=== PATIENT | male | born 1945 | race Caucasian/White ===

== ENCOUNTER 2017-01-09 11:47 | Day surgery (SDC) | payer OTHER ==
[2017-01-07 16:06] VITALS: BMI 27.2
[~2017-01-09 11:47] MED LIST: ALPRAZolam 0.25 MG TAB PO PRN; ALPRAZolam 0.5 MG TAB PO PRN; ASPIRIN 325 MG TAB PO STA; ATORVASTATIN 80 MG TAB PO STA; NITROGLYCERIN SL TABS 0.4 MG TAB SUBLINGUAL PRN; SODIUM CHLORIDE 0.9% 1,000 ML in EMPTY BAG 1 BAG IV ONE
[2017-01-09] MEDS ORDERED: ASPIRIN 81 MG ONE (12:04)
[2017-01-09 12:13] VITALS: TEMP 98.1
[2017-01-09 12:35] LABS: Glucose,Whole Blood 110 mg/dL (75-99)
[2017-01-09] MEDS ORDERED: fentaNYL (PF) 50 MCG/ML 2 ML AMP IVP ONE (13:25)
[2017-01-09] MEDS ORDERED: LIDOCAINE 2% INJ 20 MG/ML SQ ONE (13:29)
[2017-01-09] MEDS ORDERED: VERAPAMIL SYRINGE (5 MG/10 ML) INTRAARTER ONE (13:30)
[2017-01-09] MEDS ORDERED: HEPARIN SODIUM 1,000 UN/ML (10ML VL) IV ONE (13:35)
[2017-01-09] MEDS ORDERED: IOHEXOL 350 MG/ML 125ML BOTTLE INJ ONE (13:44)
[2017-01-09] MEDS ORDERED: RX INFO: IV CONTRAST WAS GIVEN 1 EACH MISC MISCELLANE PRN (14:01)
[2017-01-09] MEDS ORDERED: SODIUM CHLORIDE 0.9% 1,000 ML IV SCH (14:15)
[2017-01-09 16:11] VITALS: BP 146/67; PULSE 71; RESP 16
--- NOTE | 2017-01-09 22:36 | CC ---
CARDIAC CATHETERIZATION REPORT Mr. Galarza is a 71-year-old male with known history of hypertension, hyperlipidemia, diabetes mellitus, who presented with symptoms of progressive dyspnea on exertion that has limited his physical activity. He also describes symptoms of chest discomfort, tightness-like, with physical activity. In view of that and in view of his multiple risk factors, recommendation was made regarding cardiac catheterization. The procedure, its risks and complication were discussed with the patient, who was in full understanding and agreement. PROCEDURE: Patient was brought to the cath lab nurse in a fasting, semi-sedated state after receiving fentanyl and Benadryl and achieving moderate conscious sedated state. Using Xylocaine anesthesia and Seldinger technique, a 6-Mont[place]grin sheath was introduced in the right radial artery. Selective right and left coronary angiography was performed using a 5- [place] 3-1/2 bend right and left Je catheters. Multiple views were taken of the arteries, including hemiaxial views. Following that, a 5-Montenegrin tight pigtail catheter was introduced into the left ventricle and a 30-degree MENG view of the left ventricle was obtained. Following that, catheter and sheath were removed. Hemostasis was obtained with deployment of a TR band. There was no immediate complication. Patient was returned to his room in stable condition. FINDINGS: FLUOROSCOPY: There was calcification involving the right coronary artery, the left anterior descending artery and the left circumflex. LEFT MAIN: This is a short-size vessel bifurcating into left circumflex, left anterior descending artery. Left main coronary artery is without any significant obstructive disease. LEFT ANTERIOR DESCENDING ARTERY: This is a large-sized vessel reaching toward the apex with a wrap around the apex segment giving rise to a large diagonal branch in the proximal segment. The left anterior descending artery proximally had a 20% to 30% plaque. The rest of the vessel has no high-grade stenosis. LEFT CIRCUMFLEX: This is a nondominant vessel, large in caliber, giving rise to 2 obtuse marginal branches. The first one is very proximal and small in caliber. The second one is larger. The left circumflex proximally has a 20% to 30% plaque. The rest of the vessel has no high-grade stenosis. RIGHT CORONARY ARTERY: This is a large dominant vessel bifurcating distally into PDA, posterolateral segment and branches. The right coronary artery is tortuous in the proximal and mid segment. It has a 20% to 30% plaque in the proximal and mid segment without any evidence of high-grade stenosis. LEFT VENTRICULOGRAM: Left ventriculogram was performed in 30-degree MENG view and revealed normal left ventricular size and systolic function. There was no evidence of significant mitral regurgitation. Calcification of the abdominal aorta was noted. HEMODYNAMICS: There was no gradient across the aortic valve. The left ventricular end- diastolic pressure was 20 mmHg. CONCLUSION: 1. Calcified coronary arteries. 2. Mild triple-vessel coronary artery disease. 3. Normal left ventricular size and systolic function with calcified abdominal aorta. RECOMMENDATION: In view of the findings and anatomy, I have recommended continue medical therapy with the aggressive coronary risk modifications that have been initiated. Those findings and recommendation were discussed with the patient and his family, and they are in full understanding and agreement. Duration of the procedure was 19 minutes. SAUL / IVANA: [id number] /
[2017-01-10] MEDS ORDERED: ASPIRIN 81 MG PO SCH (09:00)
[2017-01-10] MEDS ORDERED: LOSARTAN 50 MG TAB PO SCH (09:00)
== END 2017-01-09 18:58 | disposition home or self-care (01) ==
LOC: CATHCVL 11:47 → 6ICU 14:18 → UNDOADMIN 14:18 → CATHCVL 18:58
PROVIDERS: ATTEND Internal Medicine Interventional Cardiology
DX: I25.110 Atherosclerotic heart disease of native coronary artery with unstable angina pectoris (principal); I25.84 Coronary atherosclerosis due to calcified coronary lesion; I10 Essential (primary) hypertension; E78.2 Mixed hyperlipidemia; E11.21 Type 2 diabetes mellitus with diabetic nephropathy; Z79.84 Long term (current) use of oral hypoglycemic drugs; Z79.1 Long term (current) use of non-steroidal anti-inflammatories (NSAID); Z79.899 Other long term (current) drug therapy; Z88.5 Allergy status to narcotic agent
CPT/HCPCS: 93458; C1894; C1769; J2001; J3010; J1644; Q9967

== ENCOUNTER 2017-03-12 07:29 | Day surgery (SDC) | payer OTHER ==
[2017-03-11 08:53] VITALS: BMI 26.5
[~2017-03-12 07:29] MED LIST changes: -ALPRAZolam 0.25 MG TAB PO PRN; -ALPRAZolam 0.5 MG TAB PO PRN; -ASPIRIN 325 MG TAB PO STA; -ATORVASTATIN 80 MG TAB PO STA; +LACTATED RINGERS 1,000 ML IV SCH; -NITROGLYCERIN SL TABS 0.4 MG TAB SUBLINGUAL PRN; -SODIUM CHLORIDE 0.9% 1,000 ML in EMPTY BAG 1 BAG IV ONE
[2017-03-12 07:49] VITALS: TEMP 97.7
[2017-03-12 07:53] LABS: Glucose,Whole Blood 112 mg/dL (75-99)
[2017-03-12] MEDS ORDERED: LIDOCAINE 1% INJ 10MG/ML (20 ML MDV) ONE (08:46)
[2017-03-12] MEDS ORDERED: PROPOFOL 10 MG/ML 20 ML VIAL IV ONE (08:46)
--- NOTE | 2017-03-12 09:09 | P.PCN ---
Date of Procedure: 03/12/17 Procedure(s) Performed: Procedure: Total colonoscopy. Preoperative diagnosis: Screening for neoplasia, patient has history of polyps. Postoperative diagnosis: Sigmoid diverticulosis with no evidence of acute diverticulitis, strictures, polyps or cancer. Preparation: HalfLytely prep. Sedation: Was provided by anesthesia. Brief clinical history: The patient is a 71-year-old male who is referred for this evaluation for screening for neoplasia because of history of polyps. His last exam was 5 years ago. The patient has no abdominal complaints, bleeding or anemia. Procedure: With the patient on his left lateral decubitus position and after informed consent and adequate sedation, the perianal area was inspected and it did not show any fissures or fistulas. There were no masses felt on digital rectal examination. The Olympus CFQ 160L video colonoscope was then inserted in the rectum in the usual fashion and advanced to the cecum. There were multiple diverticular orifices seen scattered in the sigmoid with no evidence of acute diverticulitis or strictures. No polyps or tumors were seen. I retroflexed the endoscope in the rectum before the endoscope was withdrawn. The patient tolerated the procedure well. Plan: The patient was reassured. Discussed dietary measures. I recommended repeat exam in 5 years. He will follow up with you as planned.
[2017-03-12 09:25] VITALS: RESP 18
[2017-03-12 09:39] VITALS: BP 149/86; PULSE 60
== END 2017-03-12 09:51 | disposition home or self-care (01) ==
LOC: ORWHC2ENDO 07:29
DX: Z12.11 Encounter for screening for malignant neoplasm of colon (principal); K57.30 Diverticulosis of large intestine without perforation or abscess without bleeding; Z86.010 Personal history of colon polyps; E11.9 Type 2 diabetes mellitus without complications; Z79.84 Long term (current) use of oral hypoglycemic drugs; I10 Essential (primary) hypertension; E78.5 Hyperlipidemia, unspecified; M19.90 Unspecified osteoarthritis, unspecified site; Z79.899 Other long term (current) drug therapy; Z88.5 Allergy status to narcotic agent
CPT/HCPCS: J2001; J2704; G0105; 45378

== ENCOUNTER → 2017-09-06 | Outpatient (CLI) | payer OTHER, MEDICARE ==
[2017-09-06 12:44] LABS: Blood Urea Nitrogen 14 mg/dL (9-20)
--- NOTE | 2017-09-06 13:29 | CT ---
EXAMINATION TYPE: CT chest w con DATE OF EXAM: 09/06/2017 COMPARISON: CT abdomen pelvis 08/02/2017 HISTORY: Solitary pulmonary nodule CT DLP: 364.20 mGycm Automated exposure control for dose reduction was used. CONTRAST: CT scan of the chest is performed with IV Contrast, patient injected with 100 ml mL of Isovue 300. FINDINGS: LUNGS: The lungs are stable, there is no change in the right middle lobe noncalcified, smoothly vasile nated nodule identified on previous exam measuring approximately 7 mm. An additional focus at this l evel is present more posteriorly associated with the fissure, both nodules appear wider than tall. Th ere is no pleural effusion or pneumothorax seen. The tracheobronchial tree is patent. MEDIASTINUM: There are no greater than 1 cm hilar or mediastinal lymph nodes. No pericardial effusi on is seen. AORTA: No additional significant abnormality is seen. Coronary artery calcifications are present. Pr ominence of the left pulmonary artery greater than right, correlate for possible pulmonary artery hyp ertension, left and right pulmonary arteries are increased in size as compared to the pulmonary arter y trunk. OTHER: Dependent high density in the gallbladder compatible with stones. There is a low dense focus towards the head of the pancreas which is incompletely evaluated but could be related to patient's du odenal diverticulum. IMPRESSION: Right lung nodules appears somewhat more nodular in the axial plane and coronal plane, t his may present inflammatory change, consider follow-up in 6-12 months to assess for stability. Addit ional findings above.
== END | disposition home or self-care (01) ==
LOC: RADCTMAIN 12:05
DX: I25.10 Atherosclerotic heart disease of native coronary artery without angina pectoris (principal); R91.8 Other nonspecific abnormal finding of lung field
CPT/HCPCS: 82565; 84520; 71260; 36415; Q9967

== ENCOUNTER → 2017-10-31 | Outpatient (CLI) | payer MEDICARE ==
--- NOTE | 2017-10-31 11:49 | XR ---
EXAMINATION TYPE: XR KUB DATE OF EXAM: 10/31/2017 11:32 AM CLINICAL HISTORY: Kidney calculi TECHNIQUE: Two Upright KUB images of the abdomen are obtained. COMPARISON: CT abdomen and pelvis August 02, 2017. FINDINGS: Scattered gas is seen in non-distended small bowel loops. Gas and fecal material is seen in non-distended colon. Tiny calculi on CT are less well seen on plain films all measuring 2 mm or smal ler in size. Underlying S-shaped scoliosis with multilevel spurring and spine is redemonstrated. Lung bases are clear. IMPRESSION: Tiny bilateral renal calculi on CT are too small to visualize on plain films.
== END | disposition home or self-care (01) ==
LOC: RADXRMAIN 11:06
PROVIDERS: ATTEND Urology
DX: N20.1 Calculus of ureter (principal)
CPT/HCPCS: 74018

== ENCOUNTER 2018-05-18 12:40 | Observation (INO) | payer MEDICARE ==
[2018-05-18] MEDS ORDERED: NITROGLYCERIN OINT 1 INCH/GM PACKET TOPICAL STA (13:24)
[2018-05-18] MEDS ORDERED: ASPIRIN 81 MG PO STA (13:24)
--- NOTE | 2018-05-18 13:29 | ED ---
General Adult HPI - General Chief complaint: Chest Pain Stated complaint: Chest discomfort Time Seen by Provider: 05/18/18 12:59 Source: patient, RN notes reviewed Mode of arrival: ambulatory Limitations: no limitations - History of Present Illness Initial comments: Patient is a pleasant 72 old male presenting to the emergency Department with complaints of chest discomfort. Onset of symptoms was yesterday. Patient states he just didn't feel right. Patient questioned if it was his blood sugar blood pressure. Blood pressure was 165/90. Patient has had some tightness or cramping in his chest, more so on the left side. There has been some associated dyspnea. There is also been some nausea and sweating. Currently patient is symptom-free. No history of similar symptoms previously. Patient states he also check his blood sugar at 135. - Related Data Home Medications Medication Instructions Recorded Confirmed Losartan [Cozaar] 50 mg PO DAILY 10/31/14 05/18/18 Naproxen 500 mg PO BID 10/31/14 05/18/18 metFORMIN HCL [Glucophage] 1,000 mg PO QAM 10/31/14 05/18/18 Atorvastatin [Lipitor] 40 mg PO DAILY 03/11/17 05/18/18 metFORMIN HCL 500 mg PO HS 05/18/18 05/18/18 Allergies Allergy/AdvReac Type Severity Reaction Status Date / Time codeine AdvReac Nausea & Verified 05/18/18 13:42 Vomiting Review of Systems ROS Statement: Those systems with pertinent positive or pertinent negative responses have been documented in the HPI. ROS Other: All systems not noted in ROS Statement are negative. Constitutional: Denies: fever, chills Eyes: Denies: eye pain ENT: Denies: ear pain Respiratory: Reports: as per HPI. Denies: cough Cardiovascular: Reports: chest pain Endocrine: Reports: fatigue Gastrointestinal: Reports: nausea Genitourinary: Denies: dysuria Musculoskeletal: Denies: back pain Skin: Denies: rash Neurological: Denies: weakness Past Medical History Past Medical History: Diabetes Mellitus, Hyperlipidemia, Hypertension, Osteoarthritis (OA) Additional Past Medical History / Comment(s): hx ulcer, hx kidney stones History of Any Multi-Drug Resistant Organisms: None Reported Past Surgical History: Heart Catheterization, Orthopedic Surgery, Tonsillectomy Additional Past Surgical History / Comment(s): left shoulder rotator cuff; lithotripsy; colonoscopy Past Anesthesia/Blood Transfusion Reactions: Motion Sickness Past Psychological History: No Psychological Hx Reported Smoking Status: Never smoker Past Alcohol Use History: None Reported Past Drug Use History: None Reported - Past Family History Father Family Medical History: Cancer General Exam Limitations: no limitations General appearance: alert, in no apparent distress Head exam: Present: atraumatic Eye exam: Present: normal appearance, PERRL ENT exam: Present: normal oropharynx Neck exam: Present: normal inspection Respiratory exam: Present: normal lung sounds bilaterally. Absent: chest wall tenderness Cardiovascular Exam: Present: regular rate, normal rhythm Expanded Peripheral pulses: 2+: Radial (R), Radial (L), Dorsalis Pedis (R), Dorsalis Pedis (L) GI/Abdominal exam: Present: soft. Absent: distended, tenderness Extremities exam: Present: normal inspection. Absent: pedal edema, calf tenderness Neurological exam: Present: alert Psychiatric exam: Present: normal affect, normal mood Skin exam: Present: normal color Course Vital Signs 05/18/18 12:48 Temperature 98.2 F Pulse Rate 97 Respiratory 18 Rate Blood Pressure 155/93 O2 Sat by Pulse 98 Oximetry EKG Findings - EKG Comments: EKG Findings:: Normal sinus rhythm 73. PA 170. QRS 110. QT 386. QTc 425. Normal axis. Normal QRS. No acute ST change. Medical Decision Making - Medical Decision Making Patient reevaluated and resting comfortably in bed. Patient and family updated on results and plan. Case was discussed in detail with Dr. Dickinson, covering for be a patient, who will admit. - Lab Data Result diagrams: 05/18/18 14:00 05/18/18 14:00 Lab Results 05/18/18 05/18/18 05/18/18 Range/Units 14:00 14:00 14:00 WBC 9.8 (3.8-10.6) k/uL RBC 5.30 (4.30-5.90) m/uL Hgb 15.8 (13.0-17.5) gm/dL Hct 47.8 (39.0-53.0) % MCV 90.4 (80.0-100.0) fL MCH 29.9 (25.0-35.0) pg MCHC 33.1 (31.0-37.0) g/dL RDW 13.8 (11.5-15.5) % Plt Count 197 (150-450) k/uL Neutrophils % 61 % Lymphocytes % 28 % Monocytes % 7 % Eosinophils % 2 % Basophils % 1 % Neutrophils # 6.0 (1.3-7.7) k/uL Lymphocytes # 2.8 (1.0-4.8) k/uL Monocytes # 0.6 (0-1.0) k/uL Eosinophils # 0.2 (0-0.7) k/uL Basophils # 0.0 (0-0.2) k/uL PT (9.0-12.0) sec INR (<1.2) APTT (22.0-30.0) sec D-Dimer (<0.60) mg/L FEU Sodium 142 (137-145) mmol/L Potassium 4.2 (3.5-5.1) mmol/L Chloride 106 (98-107) mmol/L Carbon Dioxide 23 (22-30) mmol/L Anion Gap 13 mmol/L BUN 13 (9-20) mg/dL Creatinine 0.87 (0.66-1.25) mg/dL Est GFR (CKD-EPI)AfAm >90 (>60 ml/min/1.73 sqM) Est GFR (CKD-EPI)NonAf 88 (>60 ml/min/1.73 sqM) Glucose 142 H (74-99) mg/dL Calcium 10.3 H (8.4-10.2) mg/dL Magnesium 2.0 (1.6-2.3) mg/dL Total Bilirubin 1.2 (0.2-1.3) mg/dL AST 33 (17-59) U/L ALT 38 (21-72) U/L Alkaline Phosphatase 70 (38-126) U/L Total Creatine Kinase 85 (55-170) U/L CK-MB (CK-2) 0.6 (0.0-2.4) ng/mL CK-MB (CK-2) Rel Index 0.7 Troponin I <0.012 (0.000-0.034) ng/mL Total Protein 8.0 (6.3-8.2) g/dL Albumin 4.8 (3.5-5.0) g/dL 05/18/18 Range/Units 14:00 WBC (3.8-10.6) k/uL RBC (4.30-5.90) m/uL Hgb (13.0-17.5) gm/dL Hct (39.0-53.0) % MCV (80.0-100.0) fL MCH (25.0-35.0) pg MCHC (31.0-37.0) g/dL RDW (11.5-15.5) % Plt Count (150-450) k/uL Neutrophils % % Lymphocytes % % Monocytes % % Eosinophils % % Basophils % % Neutrophils # (1.3-7.7) k/uL Lymphocytes # (1.0-4.8) k/uL Monocytes # (0-1.0) k/uL Eosinophils # (0-0.7) k/uL Basophils # (0-0.2) k/uL PT 11.4 (9.0-12.0) sec INR 1.1 (<1.2) APTT 25.0 (22.0-30.0) sec D-Dimer 0.21 (<0.60) mg/L FEU Sodium (137-145) mmol/L Potassium (3.5-5.1) mmol/L Chloride (98-107) mmol/L Carbon Dioxide (22-30) mmol/L Anion Gap mmol/L BUN (9-20) mg/dL Creatinine (0.66-1.25) mg/dL Est GFR (CKD-EPI)AfAm (>60 ml/min/1.73 sqM) Est GFR (CKD-EPI)NonAf (>60 ml/min/1.73 sqM) Glucose (74-99) mg/dL Calcium (8.4-10.2) mg/dL Magnesium (1.6-2.3) mg/dL Total Bilirubin (0.2-1.3) mg/dL AST (17-59) U/L ALT (21-72) U/L Alkaline Phosphatase (38-126) U/L Total Creatine Kinase (55-170) U/L CK-MB (CK-2) (0.0-2.4) ng/mL CK-MB (CK-2) Rel Index Troponin I (0.000-0.034) ng/mL Total Protein (6.3-8.2) g/dL Albumin (3.5-5.0) g/dL - Radiology Data Radiology results: image reviewed (Chest x-ray shows no acute process) Disposition Clinical Impression: Chest pain Disposition: ADMITTED IP TO THIS HOSP Is patient prescribed a controlled substance at d/c from ED?: No Referrals: [facility],Clinic [Primary Care Provider] - 1-2 days Decision Time: 15:28
[2018-05-18 14:18] LABS: Basophils % (A) 1 %; Eosinophils # (A) 0.2 k/uL (0-0.7); Eosinophils % (A) 2 %; HCT 47.8 % (39.0-53.0); HGB 15.8 gm/dL (13.0-17.5); Lymphocytes # (A) 2.8 k/uL (1.0-4.8); Lymphocytes % (A) 28 %; MCH 29.9 pg (25.0-35.0); MCHC 33.1 g/dL (31.0-37.0); MCV 90.4 fL (80.0-100.0); Monocytes # (A) 0.6 k/uL (0-1.0); Monocytes % (A) 7 %; Neutrophils % (A) 61 %; Platelet Count 197 k/uL (150-450); RDW 13.8 % (11.5-15.5); WBC 9.8 k/uL (3.8-10.6)
[2018-05-18 14:31] LABS: ALT 38 U/L (21-72); AST 33 U/L (17-59); Albumin 4.8 g/dL (3.5-5.0); Alkaline Phosphatase 70 U/L (38-126); Anion Gap 13 mmol/L; Blood Urea Nitrogen 13 mg/dL (9-20); Calcium 10.3 mg/dL (8.4-10.2); Carbon Dioxide 23 mmol/L (22-30); Chloride 106 mmol/L (98-107); Glucose 142 mg/dL (74-99); Potassium 4.2 mmol/L (3.5-5.1); Sodium 142 mmol/L (137-145); Total Bilirubin 1.2 mg/dL (0.2-1.3)
[2018-05-18 14:36] LABS: D-Dimer 0.21 mg/L FEU (<0.60); INR 1.1 (<1.2); Prothrombin Time 11.4 sec (9.0-12.0)
[2018-05-18 14:48] LABS: Creatine Kinase 85 U/L (55-170)
[2018-05-18 15:00] LABS: Creatine Kinase MB 0.6 ng/mL (0.0-2.4); Troponin I <0.012 ng/mL (0.000-0.034)
--- NOTE | 2018-05-18 15:22 | XR ---
EXAMINATION TYPE: XR chest 2V DATE OF EXAM: 05/18/2018 COMPARISON: CT chest 09/06/2017 HISTORY: Chest pain TECHNIQUE: Frontal and lateral views of the chest are obtained. FINDINGS: There is no focal air space opacity, pleural effusion, or pneumothorax seen. The cardiac silhouette size is within normal limits. Lung nodules described on prior report of CT are not seen o n plain film. The osseous structures are intact. IMPRESSION: No acute cardiopulmonary process.
[2018-05-18] MEDS ORDERED: NITROGLYCERIN SL TABS 0.4 MG TAB SUBLINGUAL PRN (15:29)
[2018-05-18 17:24] LABS: Glucose,Whole Blood 97 mg/dL (75-99)
[2018-05-18] MEDS: NITROGLYCERIN OINT 1 INCH/GM PACKET TOPICAL SCH (18:01)
[2018-05-18] MEDS: PANTOPRAZOLE 40 MG TABLET PO SCH (18:04)
[2018-05-18 20:14] LABS: Glucose,Whole Blood 145 mg/dL (75-99)
[2018-05-18] MEDS ORDERED: metFORMIN 500 MG TAB PO SCH (21:00)
[2018-05-18 21:20] LABS: Creatine Kinase 83 U/L (55-170)
[2018-05-18 21:33] LABS: Creatine Kinase MB 0.5 ng/mL (0.0-2.4); Troponin I <0.012 ng/mL (0.000-0.034)
[2018-05-18] MEDS: HEPARIN SODIUM,PORCINE 5,000 UNIT/ML 1 ML VIAL SQ SCH (23:59)
[2018-05-19] MEDS: NITROGLYCERIN OINT 1 INCH/GM PACKET TOPICAL SCH ×2 (00:09→05:39)
[2018-05-19] MEDS ORDERED: MELATONIN 5 MG TABLET PO SCH (00:15)
--- NOTE | 2018-05-19 01:50 | P.HPIM ---
History of Present Illness H&P Date: 05/18/18 Chief Complaint: Chest discomfort Patient is a 72-year-old male with a known history of hypertension, hyperlipidemia, diabetes type 2 and osteoarthritis and previous history of cardiac catheterization about one and half year ago without any PCI came to ER with complaints of chest discomfort. Patient says that he was found to have elevated blood pressure since last Saturday and went up to 160/80 at home. Patient felt some tightness in his chest cramping type more on the left upper rib cage and also left arm pain. Patient did have some shortness of breath and dry cough. Denied any fever or chills. No nausea vomiting or diaphoresis. Denied any recent upper respiratory infections. Patient came to Hospital for evaluation. Otherwise patient is currently chest pain-free. Chest x-ray showed no acute cardio pulmonary process EKG showed normal sinus rhythm Troponin 2 negative D-dimer 0.2 one not elevated Calcium 10.3 All other laboratory data within normal limits. Patient denied any history of smoking in the past. No alcohol use. Review of Systems Constitutional: Patient denies any fever or chills . No generalized weakness or weight loss. Abdomen: Patient denied nausea vomiting and diarrhea and abdominal pain. Cardiovascular: Patient denies any chest pain or short of breath no palpitations. Respiratory: patient denied any cough is from production. No shortness of breath Neurologic: Patient denied any numbness or tingling headache. Musculoskeletal: Patient denies any complaints of joint swelling or deformity. Skin: Negative Psychiatric: Negative Endocrine: No heat or cold intolerance. No recent weight gain. Genitourinary: No dysuria or hematuria. All other 14 point ROS negative except the above Past Medical History Past Medical History: Diabetes Mellitus, Hyperlipidemia, Hypertension, Osteoarthritis (OA) Additional Past Medical History / Comment(s): hx ulcer, hx kidney stones History of Any Multi-Drug Resistant Organisms: None Reported Past Surgical History: Heart Catheterization, Orthopedic Surgery, Tonsillectomy Additional Past Surgical History / Comment(s): left shoulder rotator cuff; lithotripsy; colonoscopy Past Anesthesia/Blood Transfusion Reactions: Motion Sickness Past Psychological History: No Psychological Hx Reported Smoking Status: Never smoker Past Alcohol Use History: None Reported Past Drug Use History: None Reported - Past Family History Father Family Medical History: Cancer Medications and Allergies Home Medications Medication Instructions Recorded Confirmed Type Losartan [Cozaar] 50 mg PO DAILY 10/31/14 05/18/18 History Naproxen 500 mg PO BID 10/31/14 05/18/18 History metFORMIN HCL [Glucophage] 1,000 mg PO QAM 10/31/14 05/18/18 History Atorvastatin [Lipitor] 40 mg PO DAILY 03/11/17 05/18/18 History metFORMIN HCL 500 mg PO HS 05/18/18 05/18/18 History Allergies Allergy/AdvReac Type Severity Reaction Status Date / Time codeine AdvReac Nausea & Verified 05/18/18 13:42 Vomiting Physical Exam Vitals: Vital Signs Temp Pulse Resp BP Pulse Ox 05/18/18 16:30 78 18 145/93 97 05/18/18 16:00 69 18 142/93 98 05/18/18 15:30 75 155/94 99 05/18/18 15:00 73 140/92 98 05/18/18 14:30 74 163/97 98 05/18/18 14:00 80 146/119 99 05/18/18 12:48 98.2 F 97 18 155/93 98 Intake and Output 05/18/18 05/18/18 05/18/18 06:59 14:59 22:59 Other: Weight 86.183 kg PHYSICAL EXAMINATION: Patient is lying in the bed comfortably, no acute distress, awake alert and oriented.. HEENT: Normocephalic. Neck is supple. Pupils reactive. Nostrils clear. Oral cavity is moist. Ears reveal no drainage. Neck reveals no JVD, carotid bruits, or thyromegaly. CHEST EXAMINATION: Trachea is central. Symmetrical expansion. Lung briceno clear to auscultation and percussion. CARDIAC: Normal S1, S2 with no gallops. No murmurs ABDOMEN: Soft. Bowel sounds normal. No organomegaly. No abdominal bruits. Extremities: reveal no edema. No clubbing or cyanosis Neurologically awake, alert, oriented x3 with well-coordinated movements. No focal deficits noted Skin: No rash or skin lesions. Psychiatric: Coperative. Nonsuicidal Musculoskeletal: No joint swelling or deformity. Normal range of motion. Results CBC & Chem 7: 05/18/18 14:00 05/18/18 14:00 Labs: Abnormal Lab Results - Last 24 Hours (Table) 05/18/18 Range/Units 14:00 Glucose 142 H (74-99) mg/dL Calcium 10.3 H (8.4-10.2) mg/dL Thrombosis Risk Factor Assmnt - DVT/VTE Prophylaxis DVT/VTE Prophylaxis: Pharmacologic Prophylaxis ordered Assessment and Plan Assessment: Atypical chest pain. Rule out ACS Uncontrolled hypertension Diabetes type 2 [id number] Osteoarthritis Hyperlipidemia History of a cardiac catheterization about one and half year ago History of renal stones status post lithotripsy History of ulcer Left shoulder rotator cuff repair DVT prophylaxis Plan: Patient be continued on telemetry monitoring. Serial EKG and troponin. Continue with home blood pressure medications and other home medications and add insulin sliding scale. Continue the pain management and further recommendations based on the clinical course. Cardiology was consulted. Time with Patient: Greater than 30
[2018-05-19 02:22] LABS: Cholesterol 105 mg/dL (<200); HDL Cholesterol 34 mg/dL (40-60); LDL Cholesterol,Calculated 26 mg/dL (0-99); Triglycerides 223 mg/dL (<150)
[2018-05-19 02:40] LABS: Creatine Kinase 89 U/L (55-170)
[2018-05-19 02:54] LABS: Creatine Kinase MB 0.5 ng/mL (0.0-2.4); Troponin I <0.012 ng/mL (0.000-0.034)
[2018-05-19 07:17] LABS: Calcium 9.7 mg/dL (8.4-10.2); Potassium 4.6 mmol/L (3.5-5.1)
[2018-05-19 07:32] LABS: Glucose,Whole Blood 115 mg/dL (75-99)
[2018-05-19] MEDS: HEPARIN SODIUM,PORCINE 5,000 UNIT/ML 1 ML VIAL SQ SCH (08:49)
[2018-05-19] MEDS: PANTOPRAZOLE 40 MG TABLET PO SCH (08:50)
[2018-05-19] MEDS ORDERED: ASPIRIN 81 MG PO SCH (09:00)
[2018-05-19] MEDS ORDERED: ASPIRIN 325 MG TAB PO SCH (09:00)
[2018-05-19] MEDS ORDERED: metFORMIN 500 MG TAB PO SCH (09:00)
[2018-05-19] MEDS ORDERED: LOSARTAN 50 MG TAB PO SCH ×2 (09:00)
[2018-05-19] MEDS ORDERED: ATORVASTATIN 40 MG TAB PO SCH (09:00)
[2018-05-19 11:41] LABS: Glucose,Whole Blood 132 mg/dL (75-99)
--- NOTE | 2018-05-19 11:56 | P.CRDCN ---
History of Present Illness History of present illness: This is a pleasant 72-year-old male past medical history significant for mild nonobstructive triple-vessel coronary artery disease, hypertension, dyslipidemia and diabetes mellitus. He follows in the office with Dr. Martinez. We have been asked to see him in consultation for symptoms of chest pain. He states since Saturday night he has been feeling fatigued, weak and has been intermittently lightheaded. He has been checking her sugar quite regularly over the weekend and is noted to be high on multiple occasions. He also checked his blood pressure and it was high as well with readings of 160/99 and 175 over 1. Takes losartan 50 mg daily and states he is very compliant with taking it every morning. He also describes a spasm type cramp sensation to the left thoracic region with radiation into the axillary region. He denies any pain in the anterior precordial chest region, arm, back, neck or jaw. He denies any shortness of breath, palpitations, nausea, vomiting or diaphoresis. His feeling fatigued and dizzy. checked his sugar and it was high. also checked his blood pressure and it was high, 160/99 175/101. takes losartan every morning. took his dose yesterday am as usual. Also feeling a spasm squeezing pain in the left thoracic region radiating into the axillary region. No pain in the arm, back, neck or jaw. Denies shortness of breath, palpitations. The discomfort in his thoracic region is associated with movement of his upper body last less than a minute at a time and comes and goes with no specific aggravating or alleviating factors. EKG on arrival reveals sinus mechanism with no acute ST or T wave abnormalities noted. Chest x-ray is negative for an acute cardiopulmonary process. Laboratory data reviewed, WBC 9.8, hemoglobin 15.8, platelets 197, d-dimer 0.21 , sodium 140, potassium 4.6, creatinine 0.99, magnesium 2.0, cardiac enzymes negative 3, LDL 26 HDL 34, triglycerides 223 and total cholesterol 105. Current cardiac medications include losartan 50 mg daily, atorvastatin 40 mg daily. He states he does not take an aspirin for personal preference. He underwent cardiac catheterization December 2017 which revealed mild nonobstructive coronary artery disease with 20-30% plaque noted in the LAD, circumflex and RCA. At the time of my exam: CONSTITUTIONAL: Denies fever. Denies chills. EYES: Denies blurred vision. Denies vision changes. Denies eye pain. EARS, NOSE, MOUTH & THROAT: Denies headache. Denies sore throat. Denies ear pain. CARDIOVASCULAR: Denies chest pain. Denies shortness of breath. Denies orthopnea. Denies PND. Denies palpitations. RESPIRATORY: Denies cough. GASTROINTESTINAL: Denies abdominal pain. Denies diarrhea. Denies constipation. Denies nausea. Denies vomiting. MUSCULOSKELETAL: Denies myalgias. INTEGUMENTARY: Denies pruitis. Denies rash. NEUROLOGIC: Denies numbness. Denies tingling. Denies weakness. PSYCHIATRIC: Denies anxiety. Denies depression. ENDOCRINE: Denies fatigue. Denies weight change. Denies polydipsia. Denies polyurina. GENITOURINARY: Denies burning, hematuria or urgency with micturation. HEMATOLOGIC: Denies history of anemia. Denies bleeding. Blood pressure 135/89 heart rate 81 afebrile maintaining oxygen saturation on room air GENERAL: This is a 72 -year-old male in no apparent distress at the time of my examination. HEENT: Head is atraumatic, normocephalic. Pupils are equal, round. Sclerae anicteric. Conjunctivae are clear. Mucous membranes of the mouth are moist. Neck is supple. There is no jugular venous distention. No carotid bruit is heard. LUNGS: Clear to auscultation no wheezes, rales or rhonchi. No chest wall tenderness is noted on palpation or with deep breathing. HEART: Regular rate and rhythm without murmurs, rubs or gallops. S1 and S2 heard. ABDOMEN: Soft, nontender. Bowel sounds are heard. No organomegaly noted. EXTREMITIES: No evidence of peripheral edema and no calf tenderness noted. VASCULAR: Radial and dorsalis pedis pulses palpated, no evidence of clubbing. NEUROLOGIC: Patient is awake, alert and oriented x3. ASSESSMENT Chest pain, musculoskeletal. An acute coronary event has been ruled out. Hypertension, uncontrolled Dyslipidemia Diabetes mellitus Mild nonobstructive multivessel coronary artery disease PLAN An acute coronary event has been ruled out with no EKG evidence of ischemia and negative cardiac enzymes. Obtain 2-D echocardiogram and Doppler study to assess cardiac structure and function. Recommend aspirin 81 mg daily. Increase losartan to 50 mg twice a day. Triglycerides will improve when diabetes was under better control. Follow-up in the office with Dr. Martinez upon discharge. Thank you kindly for this consultation. Nurse Practitioner note has been reviewed, I agree with a documented findings and plan of care. Patient was seen and examined. Past Medical History Past Medical History: Diabetes Mellitus, Hyperlipidemia, Hypertension, Osteoarthritis (OA) Additional Past Medical History / Comment(s): hx ulcer, hx kidney stones History of Any Multi-Drug Resistant Organisms: None Reported Past Surgical History: Heart Catheterization, Orthopedic Surgery, Tonsillectomy Additional Past Surgical History / Comment(s): left shoulder rotator cuff; lithotripsy; colonoscopy Past Anesthesia/Blood Transfusion Reactions: Motion Sickness Past Psychological History: No Psychological Hx Reported Smoking Status: Never smoker Past Alcohol Use History: None Reported Past Drug Use History: None Reported - Past Family History Father Family Medical History: Cancer Medications and Allergies Home Medications Medication Instructions Recorded Confirmed Type Losartan [Cozaar] 50 mg PO DAILY 10/31/14 05/18/18 History Naproxen 500 mg PO BID 10/31/14 05/18/18 History metFORMIN HCL [Glucophage] 1,000 mg PO QAM 10/31/14 05/18/18 History Atorvastatin [Lipitor] 40 mg PO DAILY 03/11/17 05/18/18 History metFORMIN HCL 500 mg PO HS 05/18/18 05/18/18 History Allergies Allergy/AdvReac Type Severity Reaction Status Date / Time codeine AdvReac Nausea & Verified 05/18/18 13:42 Vomiting Physical Exam Vitals: Vital Signs Temp Pulse Pulse Resp BP BP Pulse Ox 05/19/18 04:00 98.3 F 92 18 146/88 98 05/19/18 00:00 98.1 F 90 18 145/88 99 05/18/18 23:52 18 05/18/18 20:00 18 05/18/18 19:52 98.3 F 73 18 115/72 98 05/18/18 17:40 97.8 F 89 16 156/98 98 05/18/18 17:37 89 18 05/18/18 16:30 78 18 145/93 97 05/18/18 16:00 69 18 142/93 98 05/18/18 15:30 75 155/94 99 05/18/18 15:00 73 140/92 98 01/27/19 14:30 74 163/97 98 01/27/19 14:00 80 146/119 99 05/18/18 12:48 98.2 F 97 18 155/93 98 Intake and Output 05/18/18 05/19/18 05/19/18 22:59 06:59 14:59 Intake Total 240 Balance 240 Intake: Oral 240 Other: Voiding Method Toilet Toilet # Voids 2 Weight 87 kg Results 05/18/18 14:00 05/19/18 05:55 Cardiac Enzymes 05/18/18 05/18/18 05/18/18 Range/Units 14:00 14:00 20:17 AST 33 (17-59) U/L CK-MB (CK-2) 0.6 0.5 (0.0-2.4) ng/mL Troponin I <0.012 <0.012 (0.000-0.034) ng/mL 05/19/18 Range/Units 01:53 AST (17-59) U/L CK-MB (CK-2) 0.5 (0.0-2.4) ng/mL Troponin I <0.012 (0.000-0.034) ng/mL Coagulation 05/18/18 Range/Units 14:00 PT 11.4 (9.0-12.0) sec APTT 25.0 (22.0-30.0) sec Lipids 05/19/18 Range/Units 01:53 Triglycerides 223 H (<150) mg/dL Cholesterol 105 (<200) mg/dL HDL Cholesterol 34 L (40-60) mg/dL CBC 05/18/18 Range/Units 14:00 WBC 9.8 (3.8-10.6) k/uL RBC 5.30 (4.30-5.90) m/uL Hgb 15.8 (13.0-17.5) gm/dL Hct 47.8 (39.0-53.0) % Plt Count 197 (150-450) k/uL Comprehensive Metabolic Panel 05/18/18 05/19/18 Range/Units 14:00 05:55 Sodium 142 140 (137-145) mmol/L Potassium 4.2 4.6 (3.5-5.1) mmol/L Chloride 106 108 H (98-107) mmol/L Carbon Dioxide 23 23 (22-30) mmol/L BUN 13 16 (9-20) mg/dL Creatinine 0.87 0.99 (0.66-1.25) mg/dL Glucose 142 H 125 H (74-99) mg/dL Calcium 10.3 H 9.7 (8.4-10.2) mg/dL AST 33 (17-59) U/L ALT 38 (21-72) U/L Alkaline Phosphatase 70 (38-126) U/L Total Protein 8.0 (6.3-8.2) g/dL Albumin 4.8 (3.5-5.0) g/dL Current Medications Generic Name Dose Route Start Last Admin Trade Name Freq PRN Reason Stop Dose Admin Aspirin 325 mg 05/19/18 09:00 Aspirin PO DAILY [facility] Atorvastatin Calcium 40 mg 05/19/18 09:00 Lipitor PO DAILY [facility] Heparin Sodium (Porcine) 5,000 unit 05/19/18 00:00 05/18/18 23:59 Heparin SQ 5,000 unit Q8HR JAKUB Administration Losartan Potassium 50 mg 05/19/18 09:00 Cozaar PO DAILY [facility] Melatonin 5 mg 05/19/18 00:15 05/19/18 00:23 Melatonin PO 5 mg HS JAKUB Administration Metformin HCl 1,000 mg 05/19/18 09:00 Glucophage PO QAM JAKUB Metformin HCl 500 mg 05/18/18 21:00 05/18/18 20:07 Glucophage PO 500 mg HS JAKUB Administration Nitroglycerin 1 inch 05/18/18 18:00 05/19/18 05:39 Nitro-Bid Oint TOPICAL Not Given Q6HR [facility] Nitroglycerin 0.4 mg 05/18/18 15:29 Nitrostat SUBLINGUAL Q5M PRN Chest Pain Pantoprazole Sodium 40 mg 05/18/18 17:15 05/18/18 18:04 Protonix PO 40 mg AC-[id number] JAKUB Administration Sodium Chloride 10 ml 05/18/18 21:00 05/18/18 20:08 Saline Flush IV 10 ml BID JAKUB Administration Intake and Output 05/18/18 05/19/18 05/19/18 22:59 06:59 14:59 Intake Total 240 Balance 240 Intake: Oral 240 Other: Voiding Method Toilet Toilet # Voids 2 Weight 87 kg 05/18/18 14:00 05/19/18 05:55
[2018-05-19 12:41] VITALS: BP 138/59; PULSE 79; RESP 18; TEMP 98.2
[2018-05-19 12:47] LABS: Hemoglobin A1C 6.7 % (4.0-6.0)
--- NOTE | 2018-05-19 18:43 | ECHOF ---
Referral Reason:cp, htn, cad MEASUREMENTS -------- HEIGHT: 177.8 cm WEIGHT: 86.6 kg BP: 135/89 IVSd: 1.2 cm (0.6 - 1.1) LVIDd: 4.4 cm (3.9 - 5.3) LVPWd: 1.2 cm (0.6 - 1.1) IVSs: 1.5 cm LVIDs: 3.2 cm LVPWs: 1.4 cm RVIDd: 2.9 cm (< 3.3) LAESV Index (A-L): 15.32 ml/m Ao Diam: 3.6 cm (2.0 - 3.7) LA Diam: 3.1 cm (2.7 - 3.8) AV Cusp: 2.2 cm (1.5 - 2.6) MV E Gee: 0.52 m/s MV DecT: 390 ms MV A Gee: 0.85 m/s MV E/A Ratio: 0.61 RAP: 5.00 mmHg RVSP: 26.08 mmHg FINDINGS -------- Sinus rhythm. This was a technically good study. The left ventricular size is normal. There is mild concentric left ventricular hypertrophy. Left ventricular systolic function is hyperdynamic with an estimated EF of >70%. The right ventricle is normal in size and function. Normal LA size by volume 22+/-6 ml/m2. The right atrium is normal in size. Aortic valve is trileaflet and is mildly thickened. There is no evidence of aortic regurgitation. There is no evidence of aortic stenosis. The mitral valve leaflets are mildly thickened. There is trace to mild mitral regurgitation. Trace tricuspid regurgitation present. Right ventricular systolic pressure is normal at < 35 mmHg. There is no evidence of pulmonary hypertension. The pulmonic valve was not well visualized. The aortic root size is normal. Normal inferior vena cava with normal inspiratory collapse consistent with estimated right atrial pre ssure of 5 mmHg. There is no pericardial effusion. CONCLUSIONS -------- 1. Sinus rhythm. 2. This was a technically good study. 3. The left ventricular size is normal. 4. There is mild concentric left ventricular hypertrophy. 5. Left ventricular systolic function is hyperdynamic with an estimated EF of >70%. 6. Normal LA size by volume 22+/-6 ml/m2. 7. Aortic valve is trileaflet and is mildly thickened. 8. The mitral valve leaflets are mildly thickened. 9. There is trace to mild mitral regurgitation. 10. Trace tricuspid regurgitation present. 11. Right ventricular systolic pressure is normal at < 35 mmHg. 12. There is no evidence of pulmonary hypertension. 13. The pulmonic valve was not well visualized. 14. The aortic root size is normal. 15. There is no pericardial effusion. RETAIL EVENT ASSISTANT: Tez Nava RDCS
--- NOTE | 2018-05-19 22:52 | P.DS ---
Providers Date of admission: 05/18/18 14:53 Attending physician: Nisha Dickinson Consults: 05/18/18 15:29 Consult Physician Urgent Consulting Provider: Bill Don Consult Reason/Comments: cp Do you want consulting provider notified?: Yes Primary care physician: [facility] Hospital Course: Diagnoses: Atypical chest pain. Mostly musculoskeletal. Acute coronary syndrome has been ruled out by cardiology team. Pain is resolved Essential hypertension, better controlled Loose bowel movement, mild. Can be controlled with oral hydration. No need for antibiotic Diabetes type 2 [id number]-gddapsava Osteoarthritis Hyperlipidemia History of a cardiac catheterization about one and half year ago History of renal stones status post lithotripsy History of Left shoulder rotator cuff repair Hospital course Patient is a 72-year-old male with a known history of hypertension, hyperlipidemia, diabetes type 2 and osteoarthritis and previous history of cardiac catheterization about one and half year ago without any PCI came to ER with complaints of chest discomfort. Patient says that he was found to have elevated blood pressure since last Saturday and went up to 160/80 at home. Patient felt some tightness in his chest cramping type more on the left upper rib cage and also left arm pain. Patient did have some shortness of breath and dry cough. Patient's symptoms improved and his left upper chest pain/ discomfort is resolved as 0/10 in severity, no more dyspnea. He still have dry cough. Also he had loose bowel movement about couple days ago, compared with no bowel movement yest erday however this morning has 2 small yellowish bowel movement with no blood in them. Patient denies abdominal pain. No nausea vomiting. Able to eat and drink well with no problems. No headache. No weakness. No other complaints. Patient was also complaining of from some dizziness earlier, may be related to his increased blood pressure medication , however currently his dizziness has resolved, and his get up and go test was normal . he has been evaluated by budget clerk and they cleared him for discharge. problems and management plan was discussed with pt and he verbalized understanding and acceptance, family at bed side pt is found stable and can be ddischarge home however he needs f/u as outpt. pt is instructed to follow up with his pcp and budget clerk as indicated, agrees with appointment physical exam Gen: patient is a AAOx3, no distress CVS: S1-S2, RRR, no murmur Lungs: B/L CTA, no wheezing. No chest wall tenderness Abdomen: soft, no distention, no tenderness, positive bowel sounds Extremity: no leg edema or induration. Couldn't move his arms above his head Get up and go test: Normal test Time spent more than 35 minutes Plan - Discharge Summary Discharge Rx Participant: No New Discharge Prescriptions: New Aspirin 81 mg PO DAILY #30 chew Losartan [Cozaar] 50 mg PO BID #60 tab Continue metFORMIN HCL [Glucophage] 1,000 mg PO QAM Atorvastatin [Lipitor] 40 mg PO DAILY metFORMIN HCL 500 mg PO HS Discontinued Naproxen 500 mg PO BID Losartan [Cozaar] 50 mg PO DAILY Discharge Medication List metFORMIN HCL [Glucophage] 1,000 mg PO QAM 10/31/14 [History] Atorvastatin [Lipitor] 40 mg PO DAILY 03/11/17 [History] metFORMIN HCL 500 mg PO HS 05/18/18 [History] Aspirin 81 mg PO DAILY #30 chew 05/19/18 [Rx] Losartan [Cozaar] 50 mg PO BID #60 tab 05/19/18 [Rx] Follow up Appointment(s)/Referral(s): Cecy Martinez MD [STAFF PHYSICIAN] - 06/03/18 10:00 am (Follow up appointment made for June 03 at 10:00am to see Dr. Martinez.) [facility],Clinic [Primary Care Provider] - 1-2 days (pt to follow up with primary care provider in 1-2 days.) Patient Instructions/Handouts: Chest Pain (DC) Activity/Diet/Wound Care/Special Instructions: cardiac diet activity is limited till you see your doctor Discharge Disposition: HOME SELF-CARE
== END 2018-05-19 14:15 | disposition home or self-care (01) ==
LOC: EC 12:40 → 1SOBS 14:53
PROVIDERS: ADMIT Internal Medicine; ATTEND Internal Medicine
DX: R07.89 Other chest pain (principal); I10 Essential (primary) hypertension; E11.9 Type 2 diabetes mellitus without complications; M79.602 Pain in left arm; R11.0 Nausea; R61 Generalized hyperhidrosis; R42 Dizziness and giddiness; R06.02 Shortness of breath; R19.4 Change in bowel habit; R05 Cough; M19.90 Unspecified osteoarthritis, unspecified site; E78.5 Hyperlipidemia, unspecified; I25.10 Atherosclerotic heart disease of native coronary artery without angina pectoris; Z79.1 Long term (current) use of non-steroidal anti-inflammatories (NSAID); Z79.899 Other long term (current) drug therapy; Z79.84 Long term (current) use of oral hypoglycemic drugs; Z88.5 Allergy status to narcotic agent; Z87.442 Personal history of urinary calculi; Z80.9 Family history of malignant neoplasm, unspecified
CPT/HCPCS: 96372 ×2; 99285; 36415; 93005; 93306; 85379; 80061; 80053; 80048; 82550 ×2; 82553 ×2; 83735; 84484 ×2; 85025; 85610; 85730; 83036; 71046; G0378 ×2; J1644 ×2

== ENCOUNTER → 2020-06-10 | Outpatient (CLI) | payer OTHER ==
--- NOTE | 2020-06-11 07:32 | CT ---
EXAMINATION TYPE: CT chest wo con DATE OF EXAM: 06/10/2020 COMPARISON: 09/06/2017 HISTORY: Pulmonary nodule. Follow-up, pt reports no issues. CT DLP: 329.[address] of the chest was performed with lung and mediastinal window settings submitted. The la ck of contrast limits evaluation of the vascular, mediastinal and parenchymal structures including th e upper abdomen. LUNGS: The lungs are clear and free of infiltrate. No atelectasis. Stable pulmonary nodules right mid dle lobe measuring 7 and 5 mm respectively. No new pulmonary nodules identified. Mild COPD changes id entified. No CT evidence of interstitial lung disease. MEDIASTINUM/JESSICA: Thoracic aorta is of normal caliber with limited evaluation given lack of contrast . The heart is enlarged. No evidence for mediastinal mass. No lymph nodes greater than 1cm. UPPER ABDOMEN: Gallstones are present. OTHER: No significant other abnormality. IMPRESSION: 1. Stable of pulmonary nodules considered benign given the greater than two-year timeframe.
== END | disposition home or self-care (01) ==
LOC: RADCTMAIN 17:51
DX: R91.8 Other nonspecific abnormal finding of lung field (principal); Z88.5 Allergy status to narcotic agent; Z88.8 Allergy status to other drugs, medicaments and biological substances
CPT/HCPCS: 71250

== ENCOUNTER 2021-07-11 06:16 | Day surgery (SDC) | payer OTHER ==
[2021-07-07 12:47] VITALS: BMI 25.8
[2021-07-11 06:48] LABS: Glucose,Whole Blood 95 mg/dL (75-99)
[2021-07-11 06:50] VITALS: TEMP 97.6
[2021-07-11] MEDS ORDERED: LACTATED RINGERS 1,000 ML IV ONE (06:51)
[2021-07-11] MEDS ORDERED: LIDOCAINE 1% (10MG/ML) FOR IV START INTRADERMA ONE (06:52)
[2021-07-11] MEDS ORDERED: LACTATED RINGERS 1,000 ML IV SCH (06:59)
[2021-07-11] MEDS ORDERED: LIDOCAINE 1% (10MG/ML) FOR IV START INTRADERMA PRN (06:59)
[2021-07-11] MEDS ORDERED: PROPOFOL 10 MG/ML 20 ML VIAL IV ONE (07:30)
--- NOTE | 2021-07-11 07:51 | P.PCN ---
Date of Procedure: 07/11/21 Procedure(s) Performed: BRIEF HISTORY: Patient is a 76-year-old pleasant white male scheduled for an elective colonoscopy as a part of screening for colorectal neoplasia. PROCEDURE PERFORMED: Colonoscopy. PREOPERATIVE DIAGNOSIS: Screening for colon cancer. IV sedation per Anesthesia. PROCEDURE: After informed consent was obtained, the patient, was brought into the endoscopy unit. IV sedation was administered by Anesthesia under continuous monitoring. Digital rectal examination was normal. Initially the Olympus CF-160 flexible video colonoscope was then inserted in the rectum, gradually advanced into the cecum without any difficulty. Careful examination was performed as the scope was gradually being withdrawn. Ileocecal valve and the appendiceal orifice were visualized and appeared normal. Prep was excellent. Mucosa of the cecum, ascending colon, transverse colon, descending colon, sigmoid colon, and rectum appeared normal. Scattered sigmoid diverticulosis seen. Retroflexion was performed in the rectum and grade 2 internal hemorrhoids were seen. The patient tolerated the procedure well. IMPRESSION: Scattered sigmoid diverticulosis Grade 2 internal hemorrhoids No evidence of colorectal neoplasia RECOMMENDATIONS: Findings of this examination were discussed with the patient as well as his family. He was advised to be a high-fiber diet and take fiber supplements a regular basis and have a repeat colonoscopy in 10 years based on his overall medical condition.
[2021-07-11 08:11] VITALS: BP 147/85; PULSE 74; RESP 16
== END 2021-07-11 08:43 | disposition home or self-care (01) ==
LOC: ORWHC2ENDO 06:16
PROVIDERS: ATTEND Internal Medicine Gastroenterology
DX: Z12.11 Encounter for screening for malignant neoplasm of colon (principal); K57.30 Diverticulosis of large intestine without perforation or abscess without bleeding; K64.1 Second degree hemorrhoids; I25.10 Atherosclerotic heart disease of native coronary artery without angina pectoris; I10 Essential (primary) hypertension; E78.5 Hyperlipidemia, unspecified; Z95.5 Presence of coronary angioplasty implant and graft; E11.9 Type 2 diabetes mellitus without complications; J44.9 Chronic obstructive pulmonary disease, unspecified; Z79.84 Long term (current) use of oral hypoglycemic drugs; Z79.82 Long term (current) use of aspirin; Z79.899 Other long term (current) drug therapy; Z88.5 Allergy status to narcotic agent
CPT/HCPCS: J2704; G0121

== ENCOUNTER 2023-12-01 08:44 | Emergency (ER) | payer OTHER, MEDICARE ==
[2023-12-01] MEDS ORDERED: OXYMETAZOLINE 0.05% NASL SPRAY 1 SPRAY BOTTLE ONE (09:01)
== END 2023-12-01 11:18 | disposition home or self-care (01) ==
LOC: EC 08:44
DX: R04.0 Epistaxis (principal)
CPT/HCPCS: 99283